=== PATIENT | male | born 1995 | race Caucasian/White ===

== ENCOUNTER 2019-04-03 10:07 | Outpatient (CLI) | payer OTHER ==
--- NOTE | 2019-04-03 10:30 | ULT ---
US Thyroid STANDARD History: [Abnormal thyroid function tests.] Comparison: None. Findings: Real-time grayscale and color evaluation of the thyroid was performed. The thyroid is lobul ar, enlarged, and markedly hypervascular. Isthmus measures 9 mm in AP dimension. Right lobe measures 5.7 x 2.1 x 2 cm and left lobe measures 5.7 x 2.4 x 2.1 cm. No abnormal thyroid nodule. Impression: Markedly hypervascular enlarged thyroid suggesting acute thyroiditis. This can be seen wi th Graves' disease. Clinical correlation advised.
== END 2019-04-03 10:08 | disposition home or self-care (01) ==
LOC: SCSULT 10:07
PROVIDERS: ATTEND Family Medicine
DX: R94.6 Abnormal results of thyroid function studies (principal); E04.9 Nontoxic goiter, unspecified
CPT/HCPCS: 76536